=== PATIENT | female | born 1960 | race Caucasian/White ===

== ENCOUNTER 2024-07-10 08:29 | Outpatient (CLI) | payer MEDICARE, MEDICAID ==
[~2024-07-10] VITALS: Ht 168.9 cm; Wt 77.6 kg
[2024-07-10] MEDS: albuterol 2.5 MG/3 ML nebule NEB ONE (09:31)
[2024-07-10 09:32] VITALS: PULSE 73; RESP 16; O2SAT 98
[2024-07-10 09:44] VITALS: PULSE 98; RESP 16
== END 2024-07-10 23:59 | disposition home or self-care (01) ==
LOC: RT 08:29
PROVIDERS: ATTEND Nurse Practitioner Family
DX: R05.3 Chronic cough (principal); R06.2 Wheezing
CPT/HCPCS: 94060; 94760

== ENCOUNTER 2025-02-28 07:06 | Day surgery (SDC) | payer MEDICARE, MEDICAID ==
[~2025-02-28] VITALS: Ht 165.1 cm; Wt 76.6 kg
[2025-02-28] VITALS (10 sets, daily range): BP systolic 110–134; BP diastolic 54–68; PULSE 52–59; RESP 14–16; TEMP 97.8; O2SAT 96–98
[2025-02-28] MEDS ORDERED: NO HOME MEDS (07:39)
[2025-02-28 08:19] LABS: MEAN PLATELET VOLUME 7.9 FL (7.4-10.4); RED CELL DISTRIBUTION WIDTH 13.9 % (11.5-14.5)
--- NOTE | 2025-02-28 08:19 | ELECTROCARDIOGRAPH REPORT ---
[facility] Test Date: 2025-02-28 Test Time: 08:15:34 Pat Name: JUANA TALBOT Department: [facility] Patient ID: [id number] Room: Gender: F [employer] Project [employer]: : 1960 Requested By: KLAUDIA CROWELL Order Number: [id number] Reading MD: Dr. SELAM Johnson Measurements Intervals [place] Rate: 57 P: 21 [place]: 165 QRS: 8 QRSD: 103 T: 11 QT: 433 QTc: 422 Interpretive Statements Sinus rhythm Borderline T abnormalities, anterior leads Electronically Signed On 02-28-2025 14:57:[address] SELAM Johnson Please click the below link to view image of tracing.
[2025-02-28 08:24] LABS: INR 0.9 INR
[2025-02-28] MEDS: sodium bicarbonate 1meq/ml syr 150 ML in dextrose 5%-water 1,000 ML IV ONE (08:29)
[2025-02-28] MEDS ORDERED: nitroGLYCERIN 500mcg/5mL D5W 5 ML IV ONE (09:00)
[2025-02-28] MEDS ORDERED: midazolam 1 mg/ML 2ml injection ONE (09:29)
[2025-02-28] MEDS ORDERED: LIDOcaine 1% 30ml preserv. free vial ONE (09:56)
[2025-02-28 10:07] LABS: CREATININE 0.88 MG/DL (0.40-0.90); TOTAL CARBON DIOXIDE 29.5 MMOL/L (24-32); eCRCL 57 ML/MIN; eGFR 64 ML/MIN
--- NOTE | 2025-02-28 11:26 | CARDIOLOGY REPORT ---
DATE OF SERVICE: 02/28/2025 DICTATING PHYSICIAN: KLAUDIA CROWELL DO CARDIAC CATHETERIZATION REPORT REFERRING PHYSICIAN: Mandi Feng MD. CLINICAL HISTORY: This 64-year-old woman has unexpected exertional dyspnea. 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 The regurgitation not thought to be significant enough so as to cause dyspnea. She has had a recent pharmacologic stress test which shows reversible lateral, inferolateral and apical ischemia. The LVEF was 45%. PROCEDURES PERFORMED: * Right heart catheterization. * Left heart catheterization. * Left ventriculography. * Selective coronary arteriography. * Percutaneous arteriotomy closure (Perclose). * 60 minutes conscious sedation supervision. DESCRIPTION OF PROCEDURE: The patient was sedated with fentanyl and Versed. She was then prepared and draped in the usual manner. An 18-gauge needle was already present in a cubital vein for purposes of doing a right heart catheterization. A 0.035 guidewire was passed through the Angiocath and into the central venous circulation. The Angiocath was exchanged for a 6-Liberian sheath. Then, using a 0.035 guidewire and a 6-Liberian [place] catheter, the right atrium was entered, the wire was removed, and pressure measurements were then obtained in the right heart, the pulmonary artery, and in the wedge position. Cardiac output was performed using a thermal dilution technique. Using a standard Seldinger technique, a 6-Liberian sheath was placed in the right radial artery. 100 mcg of nitroglycerin and 2.5 mg of verapamil were directly injected into the radial artery. 5000 units of heparin were given in a peripheral IV. Next, a 0.035 guidewire and a pigtail catheter were advanced towards the ascending aorta, but neither wire nor catheter would pass. 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 There was a collateral around this, which accounts for the relative ease of palpating a radial pulse and placement of a sheath. Because the catheter would not pass this area, a decision was made to move to the right femoral artery. Using a Seldinger technique, a 7-Liberian sheath was placed in the right common femoral artery. Left heart catheterization and left ventriculography were performed using a 6-Liberian pigtail catheter. Coronary arteriography was performed using a 6-Liberian Kimny catheter for the left coronary artery and a 6-Liberian #4 right Sae catheter for the right coronary artery. The femoral arterial sheath was successfully perclosed. The radial sheath was removed and Vasc band was applied. Direct pressure was applied to the right cubital access site. RESULTS: HEMODYNAMIC DATA: The mean right atrial pressure was 2 mmHg. The right ventricular pressure was 21/2 mmHg. Pulmonary arterial pressure was 24/2 mmHg. Mean pulmonary capillary wedge pressure was 18 mmHg. Left ventricular end diastolic pressure was 24 mmHg. There was no significant gradient across the aortic valve. LEFT VENTRICULOGRAM: The left ventriculogram was technically satisfactory. The estimated ejection fraction was 45%. CORONARY ARTERIOGRAPHY: The coronary arteriograms were technically satisfactory. The patient had a right dominant system. LEFT MAIN CORONARY ARTERY: The left main was a large unobstructed vessel bifurcating into the left anterior descending and circumflex coronary arteries. LEFT ANTERIOR DESCENDING CORONARY ARTERY: The LAD was a [id number] transapical vessel with a medium-sized proximal first diagonal, a medium-sized third diagonal taking its origin from the mid distal LAD. There were no obstructive lesions anywhere within the LAD system. CIRCUMFLEX CORONARY ARTERY: The circumflex was a large main stem vessel. There was a medium to large first obtuse marginal and a very small caliber second obtuse marginal. There were no posterolateral branches on the circumflex coronary artery. RIGHT CORONARY ARTERY: The right coronary artery was a very large main stem vessel. There was a tiny posterior descending branch and a medium to large first posterolateral followed by a small caliber second posterolateral. There were no obstructive lesions in the right coronary artery. CONCLUSIONS: 1. No evidence for obstructive coronary artery disease. 2. Left ventricular ejection fraction was 45%. 3. Normal pulmonary pressures. Pulmonary arterial pressure was 24/2 mmHg with a mean of 12 mmHg. 4. 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 RECOMMENDATIONS: Recommendation is ongoing medical therapy. COMMENT: Even though this patient may have reasonably good function of her right arm, it may be reasonable to evaluate her for possible endovascular intervention on the lesion just described in the right upper extremity. KLAUDIA CROWELL DO TID: [id number] RECEIPT: [id number] ESME/HELLEN
== END 2025-02-28 14:00 | disposition home or self-care (01) ==
LOC: SSTAY O 07:06
PROVIDERS: ATTEND Internal Medicine Cardiovascular Disease
DX: R94.39 Abnormal result of other cardiovascular function study (principal); I35.1 Nonrheumatic aortic (valve) insufficiency; E78.5 Hyperlipidemia, unspecified; K21.9 Gastro-esophageal reflux disease without esophagitis; I48.91 Unspecified atrial fibrillation; Z79.899 Other long term (current) drug therapy; Z98.51 Tubal ligation status; Z98.890 Other specified postprocedural states; Z88.1 Allergy status to other antibiotic agents; Z88.8 Allergy status to other drugs, medicaments and biological substances
CPT/HCPCS: 36415; 80048; 83735; 85025; 85610; 93005; 93460; 99152; 99153; A6258; A6402; C1751; C1760; C1769; C1894; J2003; J2250; J3490; J7030; J7070; Q0163; Z7610